=== PATIENT | male | born 1955 | race Caucasian/White ===

== ENCOUNTER 2018-05-03 08:14 | Day surgery (SDC) | payer BC ==
[~2018-05-03] VITALS: Ht 182.9 cm; Wt 98.8 kg
[2018-05-03 08:44] VITALS: BP 144/89; PULSE 67; TEMP 97.5
[2018-05-03] MEDS ORDERED: FLONASE SENSIM9.9 ML NS (08:56)
[2018-05-03] MEDS ORDERED: MULTIPLE VITAMI1 CAP PO (08:57)
[2018-05-03] MEDS ORDERED: OMEGA-3 1000 MG1 CAP PO (08:57)
[2018-05-03] MEDS ORDERED: CALCIUM CITRAT950 MG PO (08:59)
[2018-05-03] MEDS ORDERED: GLUCOSAMINE 1000 PO (08:59)
[2018-05-03] MEDS ORDERED: CELEXA40 MG PO (08:59)
[2018-05-03] MEDS ORDERED: ASPIRIN 81M81 MG/TA2 PO (09:00)
[2018-05-03] MEDS ORDERED: CADUET 5 MG-101 TAB PO (09:00)
[2018-05-03] MEDS ORDERED: FLOMAX 0.40.4 MG/CAP PO (09:01)
[2018-05-03] MEDS ORDERED: ALEVE 220MG220 MG PO (09:01)
[2018-05-03] MEDS ORDERED: SINGULAIR 110 MG/TAB PO (09:01)
[2018-05-03 09:48] VITALS: BP 113/73; PULSE 77
--- NOTE | 2018-05-03 09:48 | NUR ---
Pt to [facility] via cart from [place]. Pt awake and alert. Pt ambulates to recliner with stand by assistance. Warm blanket given. Coffee and water given per pt request. Sister in room. Will continue to monitor. Call light within reach.
[2018-05-03 10:00] VITALS: BP 94/43; PULSE 74
--- NOTE | 2018-05-03 10:00 | NUR ---
Pt tolerating fluids without difficulties. Pt continues to rest. Pt visiting with his sister. Denies needs. Call light within reach.
[2018-05-03 10:15] VITALS: BP 110/73; PULSE 69
--- NOTE | 2018-05-03 10:15 | NUR ---
Pt continues to rest. Denies needs. Call light within reach.
--- NOTE | 2018-05-03 10:25 | NUR ---
Discharge instructions reviewed. Pt voices understanding. IV site discontinued with all parts intact. Pt up to dress. Call light within reach.
--- NOTE | 2018-05-03 10:35 | NUR ---
Pt escorted to private car via wheel chair. Pt accompanied home by his sister.
[2018-05-03 11:41] VITALS: BP 106/56; PULSE 71
== END 2018-05-03 10:35 | disposition home or self-care (01) ==
LOC: SDCO 08:14
DX: Z12.11 Encounter for screening for malignant neoplasm of colon (principal); K57.30 Diverticulosis of large intestine without perforation or abscess without bleeding; I10 Essential (primary) hypertension; Z86.010 Personal history of colon polyps
CPT/HCPCS: OP; J2250; J3010; J7030

== ENCOUNTER 2023-05-04 07:48 | Day surgery (SDC) | payer MEDICARE, BC ==
[~2023-05-04] VITALS: Ht 182.9 cm; Wt 91.6 kg
[~2023-05-04 07:48] MED LIST: ALEVE 220MG220 MG PO; ASPIRIN 81M81 MG/TA2 PO; CADUET 5 MG-101 TAB PO; CALCIUM CITRAT950 MG PO; CELEXA40 MG PO; FLOMAX 0.40.4 MG/CAP PO; FLONASE SENSIM9.9 ML NS; GLUCOSAMINE 1000 PO; MULTIPLE VITAMI1 CAP PO; OMEGA-3 1000 MG1 CAP PO; SINGULAIR 110 MG/TAB PO
[2023-05-04 09:53] VITALS: BP 97/63; PULSE 84; TEMP 97.6
[2023-05-04 10:08] VITALS: BP 122/84; PULSE 84
[2023-05-04 10:15] VITALS: BP 112/77; PULSE 80
--- NOTE | 2023-05-04 10:25 | NUR ---
0960 RETURNS TO ROOM 9 PER CART. AWAKE, ALERT. RESP UNLABORED. AMBULATES TO RECLINER WITH STANDBY ASSIST. DENIES NAUSEA OR ABD PAIN. VITAL SIGNS OBTAINED. CALL LIGHT AT SIDE. SISTER IN ROOM 1005 TOLERATES PO SODA AND MUFFIN WITHOUT NAUSEA. 1010 DISCHARGE INSTRUCTIONS REVIEWED. PATIENT VERBALIZES UNDERSTANDING. COPY PROVIDED IN DISCHARGE FOLDER 1013 DR DUFFY HERE TO VISIT WITH PATIENT 1020 DRESSES SELF
[2023-05-04 13:59] VITALS: BP 105/86; PULSE 73; TEMP 97.2
[2023-05-04] MEDS ORDERED: MYSOLINE 5050 MG/TAB PO (14:05)
[2023-05-04] MEDS ORDERED: ASPIRIN E.C. 8181 MG PO (14:07)
== END 2023-05-04 10:25 | disposition home or self-care (01) ==
LOC: SDCO 07:48
DX: Z12.11 Encounter for screening for malignant neoplasm of colon (principal); K57.30 Diverticulosis of large intestine without perforation or abscess without bleeding; F17.210 Nicotine dependence, cigarettes, uncomplicated; Z86.010 Personal history of colon polyps
CPT/HCPCS: J2704; J7120